=== PATIENT | male | born 1985 | race Caucasian/White ===

== ENCOUNTER 2018-02-08 22:14 | Emergency (ER) | payer OTHER ==
[2018-02-08] MEDS ORDERED: NS 1,000 ML IV ONE (23:00)
[2018-02-08] MEDS ORDERED: DIAZEPAM 5 MG/ML 1 ML SYR IVP ONE (23:00)
[2018-02-08] MEDS ORDERED: GLUCAGON HCL 1 MG VIAL IVP ONE (23:00)
--- NOTE | 2018-02-08 23:00 | EDPHY ---
H & P Stated Complaint: FEEL LIKE SOMETHING STUCK THROAT, CP, GF DID HEMLICH TONIGHT, SYNCOPE Source: Patient Exam Limitations: No limitations - Personal History Current Tetanus/Diphtheria Vaccine: Yes Tetanus Vaccine Date: 2011 - Medical/Surgical History Hx Asthma: Yes Hx Chronic Respiratory Disease: No Hx Diabetes: No Hx Cardiac Disease: No Hx Renal Disease: No Hx Cirrhosis: No Hx Alcoholism: No Hx HIV/AIDS: No Hx Splenectomy or Spleen Trauma: No Other PMH: fx r clavicle/fx bilat wrists, MULTIPLE FX BONES - Social History Smoking Status: Former smoker Time Seen by Provider: 02/08/18 22:56 HPI/ROS: HPI: This is a 32-year-old male who presents with Chief Complaint: FEEL LIKE SOMETHING STUCK THROAT, CP, GF DID HEMLICH TONIGHT, SYNCOPE Location: throat Quality: Foreign body sensation Duration: 1-2 hours prior to arrival Signs and Symptoms: no fever, no nausea, no vomiting, no hematemesis, no blood in stool, no abdominal bloating, no diarrhea, no back pain, no urinary symptoms , no testicular/groin pain, no indigestion, no chest pain, no shortness of breath, no drooling Timing: Acute Severity: [id number] Context: Patient presents with chewing me in getting stuck in his throat. Patient began to gasp for air and girlfriend performed Heimlich maneuver. Patient "passed out" for a few seconds and then came to. Patient girlfriend reports that this has happened several times over the last year only with eating meat. Patient reports that he is able to drink liquids without any difficulty. Patient has never followed up out patient had an EKG. Currently reports some esophageal and epigastric irritation. Denies any actual pain. Patient reports that he has a scratchiness and burning feeling in his mid esophagus. Able to swallow his saliva without difficulty. Modifying Factors: See above Comment: ROS: A comprehensive 10 system review of systems is otherwise negative aside from elements mentioned in the history of present illness. MEDICAL/SURGICAL/SOCIAL HISTORY: Medical history: fx r clavicle/fx bilateral wrists, MULTIPLE FX BONES Surgical history: Denies Social history: Former smoker. Family history noncontributory. CONSTITUTIONAL: Anxious well-appearing adult white male, awake and alert, no obvious distress HEENT: Atraumatic and normocephalic, PERRL, EOMI. Nares patent; no rhinorrhea; no nasal mucosal edema. Tympanic membranes clear. Oropharynx clear, no postpharyngeal edema, no exudate and moist pink mucosa. Airway patent. No lymphadenopathy. No meningismus. Cardiovascular: Normal S1/S2, regular rate, regular rhythm, without murmur rub or gallop. PULMONARY/CHEST: Symmetrical and nontender. Clear to auscultation bilaterally. Good air movement. No accessory muscle usage. ABDOMEN: Soft, nondistended, nontender, no rebound, no guarding, no peritoneal signs, no masses or organomegaly. No CVAT. EXTREMITIES: 2/2 pulses, strength 5/5, no deformities, no clubbing, no cyanosis or edema. NEUROLOGICAL: no focal neuro deficits. GCS 15. Speech is clear SKIN: Warm and dry, covered in tattoos, no erythema. no rash. Good capillary refill. (Gina Pagan) Constitutional: Initial Vital Signs Temperature (C) 36.3 C 02/08/18 22:18 Heart Rate 88 02/08/18 22:18 Respiratory Rate 18 02/08/18 22:18 Blood Pressure 125/70 H 02/08/18 22:18 O2 Sat (%) 95 02/08/18 22:18 O2 Delivery Mode Room Air Allergies/Adverse Reactions: amoxicillin [Amoxicillin] Allergy (Verified 02/08/18 22:18) chlorhexidine Allergy (Verified 02/08/18 22:18) Hives Penicillins Allergy (Verified 02/08/18 22:18) Home Medications: Medication Instructions Recorded ALPRAZolam 02/08/18 Pantoprazole Sodium [Protonix 40mg 40 mg PO DAILY #30 tab 02/09/18 (*)] Medical Decision Making ED Course/Re-evaluation: PHYSICIAN DOCUMENTATION: The patient was evaluated and managed by the Physician Recruitment Coordinator. My co- signature indicates that I have reviewed this chart and I agree with the findings and plan of care as documented. I am the secondary supervising physician. (Fay Rivera) Vital signs reviewed and stable upon arrival. Suspect syncopal episode is related to vasovagal. IV access and laboratory studies along with chest x-ray ordered Patient is maintaining his airway currently. Given 1 L normal saline, IV glucagon, IV Valium 2.5 mg, IV Toradol 30 mg 2320: Labs reviewed. No signs of leukocytosis/anemia/platelet dysfunction/ADRIÁN/ elevated LFTs/electrolyte imbalance/pancreatitis. 2339: Chest x-ray my read shows no opacity, no effusion, no fracture, no pneumothorax. 1215: Reassessed patient who reports 50% relief of symptoms. Swallowing liquids without difficulty. Talking excessively without difficulty. Suspect anxiety component at this time. Given GI cocktail, IV Haldol 2.5 mg and IV Ativan 1 mg. 0130: Reassessed patient who reports relief of symptoms. Patient is appropriate to be discharged home with outpatient gastroenterology follow-up for EGD This patient was seen under the supervision of my secondary supervising physician. I evaluated care for this patient independently. Discussed this patient with Dr. Rivera who did not see the patient. (Gina Pagan) Differential Diagnosis: Differential diagnosis includes but is not limited to esophageal spasm, esophageal stricture, foreign body in the esophagus, rib fracture. (Gina Pagan) - Data Points Laboratory Results: Laboratory Results 02/08/18 22:30 02/08/18 22:30 Medications Given: Discontinued Medications Al Hydroxide/Mg Hydroxide (Maalox Susp) 30 ml PO ONCE ONE Stop: 02/09/18 00:17 Last Admin: 02/09/18 00:24 Dose: 30 ml Diazepam (Valium) 5 mg IVP EDNOW ONE Stop: 02/08/18 23:01 Last Admin: 02/08/18 23:04 Dose: 5 mg Glucagon (Glucagon) 1 mg IVP EDNOW ONE Stop: 02/08/18 23:01 Last Admin: 02/08/18 23:13 Dose: 1 mg Haloperidol Lactate (Haldol Injection) 2.5 mg IVP EDNOW ONE Stop: 02/09/18 00:40 Last Admin: 02/09/18 00:42 Dose: 2.5 mg Hyoscyamine Sulfate (Levsin, Hyomax-Sl) 0.25 mg PO ONCE ONE Stop: 02/09/18 00:17 Last Admin: 02/09/18 00:42 Dose: 0.25 mg Sodium Chloride (Ns) 1,000 mls @ 0 mls/hr IV EDNOW ONE; Wide Open PRN Reason: Protocol Stop: 02/08/18 23:01 Last Admin: 02/08/18 23:04 Dose: 1,000 mls Ketorolac Tromethamine (Toradol) 30 mg IVP EDNOW ONE Stop: 02/08/18 23:24 Last Admin: 02/08/18 23:25 Dose: 30 mg Lidocaine (Lidocaine 2% Viscous) 15 ml PO ONCE ONE Stop: 02/09/18 00:17 Last Admin: 02/09/18 00:24 Dose: 15 ml Lorazepam (Ativan Injection) 1 mg IVP EDNOW ONE Stop: 02/09/18 00:17 Last Admin: 02/09/18 00:22 Dose: 1 mg Departure - Departure Disposition: Home, Routine, Self-Care Clinical Impression: Esophageal dysphagia Condition: Good Instructions: Esophageal Foreign Body (ED), Level 2 National Dysphagia Diet (DC ), Dysphagia (ED), Upper Endoscopy (DC) Additional Instructions: Consume a minimum of 8-10 glasses of water or electrolyte fluid replacement drinks that include Gatorade, Powerade, Pedialyte. Eat level to dysphagia diet until seen by Gastroenterology. Take Protonix daily. Avoid alcohol use. Follow-up with Gastroenterology in the next 7-10 days to determine candidacy for EGD. Referrals: Bebe Haider PA [Primary Care Provider] - As per Instructions Mahesh De Oliveira MD [Medical Doctor] - As per Instructions Prescriptions: Pantoprazole Sodium [Protonix 40mg (*)] 40 mg PO DAILY #30 tab
[2018-02-08 23:13] LABS: PLATELET COUNT 259 10^3/uL (150-400)
[2018-02-08] MEDS ORDERED: KETOROLAC 30 MG/1 ML SDV IVP ONE (23:23)
[2018-02-09] MEDS ORDERED: LIDOCAINE 2% VISCOUS 15 ML UDCUP PO ONE (00:16)
[2018-02-09] MEDS ORDERED: LORazepam 2 MG/ML INJ IVP ONE (00:16)
[2018-02-09] MEDS ORDERED: MAG HYDROX/AL HYDROX/SIMETH 30 ML UDCUP PO ONE (00:16)
[2018-02-09] MEDS ORDERED: HYOSCYAMINE SULFATE 0.125 MG TAB PO ONE (00:16)
[2018-02-09] MEDS ORDERED: HALOPERIDOL LACT 5 MG/ML INJ IVP ONE (00:39)
[2018-02-09] MEDS ORDERED: HALOPERIDOL LACT 5 MG/ML INJ ONE (00:40)
[2018-02-09 01:11] VITALS: BP 104/53
== END 2018-02-09 01:38 | disposition home or self-care (01) ==
DX: R13.10 Dysphagia, unspecified (principal)
CPT/HCPCS: 96374; J1610; J1630; J1885; J2060; J3360

== ENCOUNTER 2018-02-19 14:49 | Emergency (ER) | payer OTHER ==
--- NOTE | 2018-02-19 16:17 | EDPHY ---
General - Diagnostics Imaging: Discussed imaging studies w/ yard caller Radiologist, I viewed and interpreted images myself - History History Review: I reviewed the patient's medical records, I obtained additional history from the patient's family Smoking Status: Current some day smoker <Benny Gee - Last Filed: 02/19/18 18:23> - Diagnostics EKG: I reviewed patient's EKG. See [employer] system for interpretation <JesseThiago Yanet - Last Filed: 02/19/18 19:16> Time Seen by Provider: 02/19/18 16:07 Narrative: CHIEF COMPLAINT: syncope HISTORY OF PRESENT ILLNESS: Patient presents private vehicle with his father with complaints of passing out last night and falling. He states that he was working in his garage on his [employer] bike when he lost consciousness. He does not remember the exact details of the event. He awoke on the ground with headache and facial pain. He has lost consciousness 2 other times since February 08. None of these were proceeded with exertion. None of these had preceding chest pain. First episode he felt as he was choking and receive the Heimlich maneuver immediately prior. He was seen by GI physician this week with EGD performed . He reports a stricture that was dilated at the time. His chest pain has nearly resolved following this. He has no dizziness or lightheadedness prior to the syncope. Has no nausea or vomiting. No chest pain at this time. No shortness of breath. No vertiginous complaints. No difficulty ambulating. He does have a severe headache today with some facial pain and forehead pain as well. Worse with palpation movement. Improved at rest. No other associated complaints or modifying factors. No use of anticoagulants. REVIEW OF SYSTEMS: 10 systems were reviewed and negative with the exception of the elements mentioned in the history of present illness. PCP: Dr. Bebe Haider SPECIALISTS: GI, Dr. Alonzo Colin PAST MEDICAL HISTORY: Orthopedic injuries, esophageal stricture PAST SURGICAL HISTORY: Orthopedic surgeries SOCIAL HISTORY: Nonsmoker. Lives independently with his spouse. Works as a fitter/welder FAMILY HISTORY: No family history of sudden cardiac per father bedside EXAMINATION: Vitals: Triage VS reviewed General Appearance: Alert, no distress Head: normocephalic. Moderate forehead hematoma with abrasion and nasal bridge abrasion as below. No deformity. No Boyer sign or raccoon eyes. Eyes: Pupils equal and round, no conjunctival pallor or injection. EOM symmetric. No nystagmus or dysconjugate gaze. ENT, Mouth: Mucous membranes moist. There is moderate abrasion to the nasal bridge without active bleeding. No septal hematoma. Airway widely patent. Neck: Normal inspection, supple, non-tender. No crepitus or deformity. No meningismus or rigidity. Respiratory: Lungs are clear to auscultation Cardiovascular: Regular rate and rhythm Gastrointestinal: Abdomen is soft and nontender Back: non-tender, no bony abnormalities Neurological: Cranial nerves 2-12 grossly intact. GCS 15. A&O, nonfocal, light sensory strength is symmetric in upper lower extremities. Skin: Warm and dry, no rash. Facial abrasion as above. Multiple tattoos and piercings. Extremities: Nontender, no pedal edema. Symmetric range of motion extremities. Psychiatric: Mood and affect normal DIFFERENTIAL DIAGNOSES: Including but not limited to syncope, vasovagal syncope, orthostasis, dehydration, cardiomyopathy, hypertrophic cardiomyopathy, conduction delay MDM: 4:05 p.m. Reported syncopal episode last night that was unprovoked. He has 2 previous episodes in the past 11 days. He is awake alert. He does have some post concussive symptoms No acute distress but he does have a severe headache but his neuro exam within limits. Laboratory studies will be obtained. I have also ordered chest x-ray and CT scan of the head due to his fall severe headache. EKG currently being obtained. 5:20 p.m. Case discussed with radiologist. CT scan of the head reveals no intracranial abnormality. There is possible nondisplaced nasal bridge fracture. Patient re- evaluated. He continues to feel well with some mild post concussive symptoms. We discussed discharge home with Cardiology follow-up closely. We discussed not return to work until seen and cleared by building coordinator primary care physician. We discussed ED precautions for any chest pain or return of syncope. We discussed ENT follow-up for the nasal injury. We discussed follow up with Dr. Bell for the head injury. I have answered all his questions. Both he and his father comfortable this plan. Discharged home stable condition. SUPERVISION: Patient was independently examined, but I discussed the case with my secondary supervising physician Dr. Molina CONSULTATION: None (Benny Gee) Medical Decision Making: PHYSICIAN DOCUMENTATION: The patient was evaluated and managed by the Physician Revenue Cycle Consultant. My co- signature indicates that I have reviewed this chart and I agree with the findings and plan of care as documented. I am the secondary supervising physician. (Thiago Molina) - Diagnostics EKG Interpretation: EKG: Complete interpretation has been separately recorded in the [employer] archive. Summary impression: Sinus rhythm, rate 72 (Thiago Molina) Imaging Results: Imaging Impressions Chest X-Ray 02/19/18 16:17 Impression: Stable negative chest. Head CT 02/19/18 16:18 Impression: 1. No evidence for acute intracranial abnormality. 2. Nondisplaced nasal bone fracture. Radiopaque foreign body in the skin overlying the nose. Results called and discussed with Benny Gee PA-C, on February 19, 2018 at 1718. - Objective Vital Signs: Initial Vital Signs Temperature (C) 36 C 02/19/18 15:13 Heart Rate 90 02/19/18 15:13 Respiratory Rate 16 02/19/18 15:13 Blood Pressure 146/88 H 02/19/18 15:13 O2 Sat (%) 96 02/19/18 15:13 O2 Delivery Mode Room Air Allergies/Adverse Reactions: amoxicillin [Amoxicillin] Allergy (Verified 02/08/18 22:18) chlorhexidine Allergy (Verified 02/08/18 22:18) Hives Penicillins Allergy (Verified 02/08/18 22:18) Home Medications: Medication Instructions Recorded Pantoprazole Sodium [Protonix 40mg 40 mg PO DAILY #30 tab 02/09/18 (*)] Acet/Caffeine/Buta Fioricet 1 each PO Q6 PRN #12 tab 02/19/18 [Fioricet (*)] Laboratory Results: Laboratory Results 02/19/18 16:22 02/19/18 16:22 02/19/18 02/19/18 02/19/18 16:54 16:22 16:22 WBC 7.59 10^3/uL 10^3/uL (3.80-9.50) RBC 5.07 10^6/uL 10^6/uL (4.40-6.38) Hgb 15.6 g/dL g/dL (13.7-17.5) POC Hgb 17.0 gm/dL gm/dL (13.7-17.5) Hct 46.5 % % (40.0-51.0) POC Hct 50 % % (40-51) MCV 91.7 fL fL (81.5-99.8) MCH 30.8 pg pg (27.9-34.1) MCHC 33.5 g/dL g/dL (32.4-36.7) RDW 13.6 % % (11.5-15.2) Plt Count 220 10^3/uL 10^3/uL (150-400) MPV 10.4 fL fL (8.7-11.7) Neut % (Auto) 57.6 % % (39.3-74.2) Lymph % (Auto) 29.8 % % (15.0-45.0) [place] % (Auto) 10.3 % % (4.5-13.0) Eos % (Auto) 0.9 % % (0.6-7.6) Baso % (Auto) 1.1 % % (0.3-1.7) Nucleat RBC Rel Count 0.0 % % (0.0-0.2) Absolute Neuts (auto) 4.38 10^3/uL 10^3/uL (1.70-6.50) Absolute Lymphs (auto) 2.26 10^3/uL 10^3/uL (1.00-3.00) Absolute Monos (auto) 0.78 10^3/uL 10^3/uL (0.30-0.80) Absolute Eos (auto) 0.07 10^3/uL 10^3/uL (0.03-0.40) Absolute Basos (auto) 0.08 10^3/uL 10^3/uL (0.02-0.10) Absolute Nucleated RBC 0.00 10^3/uL 10^3/uL (0-0.01) Immature Gran % 0.3 % % (0.0-1.1) Immature Gran # 0.02 10^3/uL 10^3/uL (0.00-0.10) POC Sodium 143 mEq/L mEq/L (135-145) Sodium 141 mEq/L mEq/L (135-145) POC Potassium 3.7 mEq/L mEq/L (3.3-5.0) Potassium 4.2 mEq/L mEq/L (3.5-5.2) POC Chloride 105 mEq/L mEq/L (97-110) Chloride 106 mEq/L mEq/L (97-110) Carbon Dioxide 22 mEq/l mEq/l (22-31) Anion Gap 13 mEq/L mEq/L (6-14) POC BUN 9 mg/dL mg/dL (7-23) BUN 11 mg/dL mg/dL (7-23) Creatinine 0.9 mg/dL mg/dL (0.7-1.3) POC Creatinine 1.0 mg/dL mg/dL (0.7-1.3) Estimated GFR > 60 Glucose 79 mg/dL mg/dL (70-100) POC Glucose 77 mg/dL mg/dL (70-100) Calcium 9.9 mg/dL mg/dL (8.5-10.4) Magnesium 2.0 mg/dL mg/dL (1.6-2.3) Medications Given: Discontinued Medications Acetaminophen (Tylenol) 650 mg PO EDNOW ONE Stop: 02/19/18 16:35 Last Admin: 02/19/18 17:19 Dose: Not Given Ibuprofen (Motrin) 800 mg PO EDNOW ONE Stop: 02/19/18 16:28 Last Admin: 02/19/18 17:18 Dose: 800 mg Point of Care Test Results: Chemistry 02/19/18 16:54 POC Sodium 143 mEq/L mEq/L (135-145) POC Potassium 3.7 mEq/L mEq/L (3.3-5.0) POC Chloride 105 mEq/L mEq/L (97-110) POC BUN 9 mg/dL mg/dL (7-23) POC Creatinine 1.0 mg/dL mg/dL (0.7-1.3) POC Glucose 77 mg/dL mg/dL (70-100) ISTAT H&H 02/19/18 16:54 POC Hgb 17.0 gm/dL gm/dL (13.7-17.5) POC Hct 50 % % (40-51) Departure <Benny Gee - Last Filed: 02/19/18 18:23> <Thiago Molina - Last Filed: 02/19/18 19:16> - Departure Disposition: Home, Routine, Self-Care Clinical Impression: Syncope Qualifiers: Syncope type: unspecified Qualified Code(s): R55 - Syncope and collapse Nasal contusion Qualifiers: Encounter type: initial encounter Qualified Code(s): S00.33XA - Contusion of nose, initial encounter Closed head injury Qualifiers: Encounter type: initial encounter Qualified Code(s): S09.90XA - Unspecified injury of head, initial encounter Condition: Good Instructions: Syncope (ED), Concussion (ED) Additional Instructions: 1. Rest and follow up with building coordinator this week 2. Follow up with ENT in the next 2 weeks for the nasal injury 3. Contact and follow up with Dr. Bell for further care of the head injury 4. ED precautions for any chest pain, recurrent syncope, headache, nausea vomiting 5. Daily wound care to the nasal bridge 6. Do not drive or operate machinery until seen and cleared by building coordinator or primary care physician Referrals: Bebe Haider PA [Primary Care Provider] - As per Instructions Gely Bell MD [Medical Doctor] - As per Instructions Brendan Lizarraga MD [Medical Doctor] - As per Instructions Donta Cedeno MD [Medical Doctor] - As per Instructions Stand Alone Forms: Work Excuse Prescriptions: Acet/Caffeine/Buta Fioricet [Fioricet (*)] 1 each PO Q6 PRN #12 tab PRN Reason: Headache
[2018-02-19] MEDS ORDERED: IBUPROFEN 800 MG TAB PO ONE (16:27)
--- NOTE | 2018-02-19 16:31 | CPEKG ---
Test Reason : OPEN Blood Pressure : / mmHG Vent. Rate : 072 BPM Atrial Rate : 072 BPM P-R Int : 132 ms QRS Dur : 095 ms QT Int : 384 ms P-R-T Axes : 048 079 066 degrees QTc Int : 421 ms Sinus rhythm Confirmed by Thiago Molina ([id number]) on 02/19/2018 4:30:58 PM Referred By: Confirmed By:Thiago Molina
[2018-02-19 16:34] LABS: PLATELET COUNT 220 10^3/uL (150-400)
[2018-02-19] MEDS ORDERED: ACETAMINOPHEN 325 MG TAB PO ONE (16:34)
[2018-02-19 18:11] VITALS: BP 135/74
== END 2018-02-19 18:12 | disposition home or self-care (01) ==
DX: R55 Syncope and collapse (principal); S06.0X9A Concussion with loss of consciousness of unspecified duration, initial encounter; Y92.015 Private garage of single-family (private) house as the place of occurrence of the external cause
CPT/HCPCS: 82435-PO; 82565-PO; 82947-PO; 84132-PO; 84295-PO; 84520-PO; 85014-PO